=== PATIENT | male | born 1990 | race Caucasian/White ===

== ENCOUNTER 2018-08-29 16:13 | Emergency (ER) | payer SELFPAY ==
[~2018-08-29] VITALS: Ht 193 cm; Wt 131.8 kg
[2018-08-29 16:20] VITALS: Ht 193 cm; Wt 131.8 kg
[2018-08-29] MEDS ORDERED: ONDANSETRON 4 MG INJ IV STA (16:26)
[2018-08-29] MEDS ORDERED: SOD CHLORIDE 0.9% 1,000 ML IV STA (16:26)
[2018-08-29] MEDS ORDERED: NALOXONE (0.4 MG/ML) INJ IV STA (16:26)
[2018-08-29 16:45] VITALS: BP 149/85; PULSE 114; RESP 18
--- NOTE | 2018-08-30 13:53 | ERD ---
ER Documentation Chief Complaint Chief Complaint OVERDOSE ON UNKNOWN SUBSTANCE, PT ALTERED UPON ARRIVAL HPI This is a 28-year-old male that presents to the emergency department after he had an accidental overdose on fentanyl. The patient was scheduled to go to rehab today and was about to be driven to the rehab facility by his parents when they noticed that the patient had been unresponsive. The patient was not breathing and they immediately brought the patient to the emergency department for evaluation. His parents indicated that the patient does have a known history of recreational fentanyl use and has been in and out of rehabilitation multiple times. He is never attempted suicide. ROS All systems reviewed and are negative except as per history of present illness. Medications Home Meds No Active Prescriptions or Reported Meds Allergies Allergies: Coded Allergies: No Known Allergy (Unverified , 08/29/18) PMhx/Soc Medical and Surgical Hx: pt denies Surgical Hx History of Surgery: No Anesthesia Reaction: No Hx Neurological Disorder: No Hx Respiratory Disorders: No Hx Cardiac Disorders: No Hx Psychiatric Problems: No Hx Miscellaneous Medical Probl: Yes (Drug abuse) Hx Alcohol Use: Yes Hx Substance Use: Yes Hx Tobacco Use: No Smoking Status: Never smoker Physical Exam Vitals Vital Signs Date Temp Pulse Resp B/P (MAP) Pulse Ox O2 O2 Flow FiO2 Time Delivery Rate 08/29/18 99.4 114 18 149/85 99 Room Air 16:45 (106) 08/29/18 139 18 148/74 99 Room Air 16:23 (98) 08/29/18 99.7 167 20 98 16:20 Physical Exam Constitutional:Well-developed. Well-nourished. HEENT:Normocephalic. Atraumatic.Pupils were equal round reactive to light. Moist mucous membranes.No tonsillar exudates. Neck: No nuchal rigidity. No lymphadenopathy. No posterior cervical spine tenderness or step-offs. Respiratory: Agonal respirations. Cardiovascular: Regular rate regular rhythm.No murmurs. No rubs were appreciated.S1, S2 normal. Distal pulses are palpable 2+ bilaterally. GI: Abdomen was soft. Nontender. Non Distended. No pulsatile abdominal masses or bruits. No rebound. No guarding. Bowel sounds were present and normal. Muscle skeletal: Flaccid paralysis of the upper and lower extremities Skin: No petechia, no purpura. No lesions on the palms or the soles of the feet. No maculopapular rash. Diaphoretic NEURO: Patient was unresponsive with a GCS of 3 Result Diagram: 08/29/18 1631 08/29/18 1631 Results 24 hrs Laboratory Tests Test 08/29/18 16:31 White Blood Count 11.7 10^3/ul Red Blood Count 4.50 10^6/ul Hemoglobin 13.2 g/dl Hematocrit 39.7 % Mean Corpuscular Volume 88.2 fl Mean Corpuscular Hemoglobin 29.3 pg Mean Corpuscular Hemoglobin Concent 33.2 g/dl Red Cell Distribution Width 13.2 % Platelet Count 376 10^3/UL Mean Platelet Volume 9.6 fl Immature Granulocytes % 0.600 % Neutrophils % 67.6 % Lymphocytes % 23.6 % Monocytes % 5.9 % Eosinophils % 1.4 % Basophils % 0.9 % Nucleated Red Blood Cells % 0.0 /100WBC Immature Granulocytes # 0.070 10^3/ul Neutrophils # 7.9 10^3/ul Lymphocytes # 2.8 10^3/ul Monocytes # 0.7 10^3/ul Eosinophils # 0.2 10^3/ul Basophils # 0.1 10^3/ul Nucleated Red Blood Cells # 0.0 10^3/ul Sodium Level 142 mmol/L Potassium Level 4.0 mmol/L Chloride Level 107 mmol/L Carbon Dioxide Level 26 mmol/L Anion Gap 9 Blood Urea Nitrogen 13 mg/dl Creatinine 1.05 mg/dl Est Glomerular Filtrat Rate mL/min > 60 mL/min Glucose Level 118 mg/dl Calcium Level 9.4 mg/dl Total Bilirubin 0.3 mg/dl Direct Bilirubin 0.00 mg/dl Indirect Bilirubin 0.3 mg/dl Aspartate Amino Transf (AST/SGOT) 29 IU/L Alanine Aminotransferase (ALT/SGPT) 41 IU/L Alkaline Phosphatase 86 IU/L Total Protein 7.9 g/dl Albumin 4.6 g/dl Globulin 3.30 g/dl Albumin/Globulin Ratio 1.39 Salicylates Level < 1.0 mg/dl Acetaminophen Level < 10.0 ug/ml Ethyl Alcohol Level 82.0 mg/dl Current Medications Medications Dose Sig/Alecia Start Time Status Last (Trade) Ordered Route PRN Stop Time Admin Dose Reason Admin Sodium 1,000 ml @ Q1H STAT 08/29/18 DC 08/29/18 Chloride 1,000 mls/hr IV 16:26 16:35 08/29/18 17:25 Naloxone 2 mg ONCE STAT 08/29/18 DC 08/29/18 HCl IV 16:26 16:35 (Narcan) 08/29/18 16:28 Ondansetron 4 mg ONCE STAT 08/29/18 DC 08/29/18 HCl (Zofran IV 16:26 16:37 Inj) 08/29/18 16:28 Procedures/MDM This is a 28-year-old male that presented to the emergency department with pinpoint pupils and a toxidrome consistent with opiate overdose. The patient immediately had IV access was established. He had been placed on a brim presser continuous pulse oximetry and the patient was given 2 mg of Narcan. The patient immediately returned to his baseline mental status. He was diaphoretic and tachycardic. He received a liter bolus of normal saline. The patient no severe electrolyte abnormalities. The patient stated he had no suicidal homicidal thoughts or ideations. The patient was very tearful but stated he wanted to become clean and sober and therefore he was able to be directly taken to the rehab facility by his parents. The patient was discharged home in fair condition. They were instructed to return to the emergency department at any time if there was any worsening of their condition. The patient stated they would follow up with their PCP in the next 24-48 hours to initiate a suitable medication regimen under the care of their PCP as well as to allow their PCP to monitor any drug reactions. The patient was discharged home with prescriptions after they gave informed consent to the new medication. They were also fully informed by myself on the adverse effects and adverse drug interactions in order to provide adequate safeguards to prevent possible adverse reactions to medications. Critical Care: Time: 35 minutes Treatments/Evaluations: Close monitoring and treatment of unstable vital signs, cardiorespiratory, and neurologic status, while maintaining tight balance of fluid, respiratory, and cardiac interventions. Time does not include performing any of the above billable procedures. Departure Diagnosis: Primary Impression: Opiate overdose Encounter type: initial encounter Injury intent: undetermined intent Qualified Codes: T40.604A - Poisoning by unspecified narcotics, undetermined, initial encounter Condition: Fair Patient Instructions: Opiate Abuse Additional Instructions: Patient is medically cleared to enter drug rehabilitation YAN SEVILLA MD Aug 30, 2018 13:51
== END 2018-08-29 17:26 | disposition home or self-care (01) ==
LOC: E/R 16:13
DX: T40.4X1A Poisoning by other synthetic narcotics, accidental (unintentional), initial encounter (principal); R40.2432 Glasgow coma scale score 3-8, at arrival to emergency department
CPT/HCPCS: 80053; 80307; 85025; 96374; 96375; 99284; J2405; J7030